=== PATIENT | female | born 1995 | race Caucasian/White ===

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

== ENCOUNTER 2017-01-04 04:42 | Inpatient (IN) | payer MEDICAID, OTHER ==
[~2017-01-04] VITALS: Ht 162.6 cm; Wt 96.5 kg
[~2017-01-04 04:42] MED LIST changes: +ARIP15TA3 PO; -ESCI10TA PO; -GABA-531 PO; -PRAZ2 PO; +SERT100T12 PO; +TRAZ-144 PO
[2017-01-04] MEDS ORDERED: HYD25 PO (05:00)
[2017-01-04] MEDS ORDERED: PRAZ1 PO (05:00)
[2017-01-04 05:43] LABS: BASOPHILS # (AUTO) 0.03 K/uL (0.00-0.20); BASOPHILS % (AUTO) 0.3 % (0.0-2.0); EOSINOPHILS # (AUTO) 0.38 K/uL (0.00-0.70); EOSINOPHILS % (AUTO) 4.14 % (1.0-6.0); HEMATOCRIT 40.1 % (36-46); HEMOGLOBIN 13.4 g/dL (12.0-16.0); LYMPHOCYTES # (AUTO) 2.1 K/uL (1.0-4.8); MEAN CORPUSCULAR HEMOGLOBIN 27.7 pg (26.0-34.0); MEAN CORPUSCULAR HGB CONC 33.4 G/dL (31.0-37.0); MEAN CORPUSCULAR VOLUME 83 fL (80-100); MONOCYTES # (AUTO) 0.6 K/uL (0.1-1.0); MONOCYTES % (AUTO) 6.9 % (2.0-9.0); NEUTROPHILS % (AUTO) 65.7 % (40.0-70.0); PLATELET COUNT (AUTO) 259 K/uL (150-450); RED BLOOD CELL COUNT(AUTO) 4.83 MIL/uL (4.00-5.20); RED CELL DISTRIBUTION WIDTH 13.9 % (11.5-14.5); WHITE BLOOD COUNT (AUTO) 9.2 K/uL (4.5-11.0)
[2017-01-04 05:46] LABS: ANION GAP 8 mmol/L (8-16); CALCIUM, TOTAL 9.3 mg/dL (8.8-10.5); CARBON DIOXIDE 30 mmol/L (22-29); CHLORIDE 103 mmol/L (98-107); CREATININE 0.62 mg/dL (0.60-1.30); GLOMERULAR FILTR. RATE CALC > 60 mL/min (>60); POTASSIUM 4.4 mmol/L (3.5-5.1); SODIUM SERUM 141 mmol/L (136-145); UREA NITROGEN, BLOOD 7 mg/dL (7-18)
[2017-01-04 05:51] LABS: ALANINE AMINOTRANSFERASE 44 U/L (12-78); ALBUMIN 3.8 g/dL (3.4-5.0); ASPARTATE AMINOTRANSFERASE 25 U/L (15-37); BILIRUBIN,TOTAL 0.2 mg/dL (0.1-1.0); TOTAL PROTEIN, SERUM 8.7 g/dL (6.4-8.2)
[2017-01-04] MEDS ORDERED: LORazepam 2 MG TABLET PO ONE (07:45)
[2017-01-04] MEDS ORDERED: ZOLPIDEM TARTRATE 10 MG TABLET PO PRN (08:00)
[2017-01-04] MEDS: OLANZapine 5 MG RAPDIS TABLET PO PRN ×2 (08:01→16:14)
[2017-01-04] MEDS: LORazepam 2 MG TABLET PO PRN (16:14)
[2017-01-04] MEDS: GABAPENTIN 300 MG CAPSULE PO SCH ×2 (16:22→21:31)
[2017-01-04] MEDS ORDERED: MAG HYDROX/AL HYDROX/SIMETH ES 30 ML SUSPENSION UDCUP PO PRN (17:45)
[2017-01-04] MEDS ORDERED: LOPERAMIDE HCL 2 MG CAPSULE PO PRN (17:45)
[2017-01-04] MEDS ORDERED: HydrOXYzine PAMOATE 50 MG CAPSULE PO PRN (17:45)
[2017-01-04] MEDS ORDERED: PROMETHAZINE HCL 25 MG TABLET PO PRN (17:45)
[2017-01-04] MEDS ORDERED: GuaiFENesin/D-METHORPHAN [SUGAR-FREE] 200-20MG/10 ML SYRUP UDCUP PO PRN (17:45)
[2017-01-04] MEDS ORDERED: MAGNESIUM HYDROXIDE SUSPENSION 30 ML UDCUP PO PRN (17:45)
[2017-01-04] MEDS ORDERED: ACETAMINOPHEN 325 MG TABLET PO PRN (17:45)
[2017-01-04] MEDS ORDERED: OLANZapine 5 MG TABLET PO SCH (21:00)
[2017-01-04] MEDS ORDERED: ARIPiprazole 10 MG TABLET PO SCH (21:00)
[2017-01-04] MEDS: PRAZOSIN HCL 2 MG CAPSULE PO SCH (21:31)
[2017-01-04] MEDS: TraZODone HCL 50 MG TABLET PO SCH (21:31)
[2017-01-04] MEDS: THIAMINE HCL 100 MG TABLET PO SCH (21:31)
[2017-01-04] MEDS: SERTRALINE HCL 100 MG TABLET PO SCH (21:31)
[2017-01-05 01:38] VITALS: BP 129/64
[2017-01-05] MEDS ORDERED: PNEUMOCOCCAL VACCINE POLYVALENT 0.5 ML VIAL [PPSV23] IM ONE (06:30)
[2017-01-05 08:07] VITALS: BP 133/70
[2017-01-05] MEDS: FOLIC ACID 1 MG TABLET PO SCH (10:02)
[2017-01-05] MEDS: MULTIVITAMINS WITH MINERALS, THERAPEUTIC TABLET PO SCH (10:02)
[2017-01-05] MEDS: GABAPENTIN 300 MG CAPSULE PO SCH ×3 (10:02→16:38)
[2017-01-05] MEDS: THIAMINE HCL 100 MG TABLET PO SCH ×2 (10:03→16:38)
[2017-01-05] MEDS ORDERED: IBUPROFEN 400 MG TABLET PO PRN (10:30)
[2017-01-05] MEDS ORDERED: ALBUTEROL SULFATE HFA 90 MCG/PUFF 8 GM INHALER IH PRN (10:30)
[2017-01-05] MEDS: LORazepam 2 MG TABLET PO PRN (12:49)
[2017-01-05] MEDS: OLANZapine 5 MG RAPDIS TABLET PO PRN (12:49)
[2017-01-05 14:20] LABS: GLUCOSE, URINE (UA) NEGATIVE (NEGATIVE); KETONES,URINE NEGATIVE (NEGATIVE); LEUKOCYTE ESTERASE ,URINE SMALL (NEGATIVE); OCCULT BLOOD,URINE NEGATIVE (NEGATIVE); PH,URINE 6.5 (5.0-8.0); PROTEIN,URINE NEGATIVE (NEGATIVE)
[2017-01-05 14:26] LABS: APPEARANCE,URINE SLIGHTLY CLOUDY (CLEAR)
[2017-01-05 14:27] LABS: RBC,URINE None Seen /HPF (0-2); SQUAMOUS EPITHELIAL CELL,UR Moderate /LPF (None Seen)
[2017-01-05 16:41] VITALS: BP 129/79
[2017-01-05] MEDS: TRIHEXYPHENIDYL HCL 2 MG TABLET PO SCH (17:29)
[2017-01-05] MEDS: TraZODone HCL 50 MG TABLET PO SCH (21:00)
[2017-01-05] MEDS ORDERED: HALOPERIDOL 10 MG TABLET PO SCH (21:00)
[2017-01-05 21:09] VITALS: BP 139/62
[2017-01-05] MEDS: PRAZOSIN HCL 2 MG CAPSULE PO SCH (22:08)
[2017-01-05] MEDS: SERTRALINE HCL 100 MG TABLET PO SCH (22:09)
[2017-01-06 08:00] VITALS: BP 123/74
[2017-01-06] MEDS: TRIHEXYPHENIDYL HCL 2 MG TABLET PO SCH ×3 (09:19→16:31)
[2017-01-06] MEDS: FOLIC ACID 1 MG TABLET PO SCH (09:20)
[2017-01-06] MEDS: THIAMINE HCL 100 MG TABLET PO SCH ×2 (09:20→16:31)
[2017-01-06] MEDS: GABAPENTIN 300 MG CAPSULE PO SCH ×3 (09:20→16:31)
[2017-01-06] MEDS: MULTIVITAMINS WITH MINERALS, THERAPEUTIC TABLET PO SCH (09:20)
[2017-01-06 16:30] VITALS: BP 114/66
[2017-01-06] MEDS: SERTRALINE HCL 100 MG TABLET PO SCH (20:30)
[2017-01-06] MEDS: PRAZOSIN HCL 1 MG CAPSULE PO SCH (20:30)
[2017-01-06] MEDS ORDERED: HALOPERIDOL 5 MG TABLET PO SCH (21:00)
[2017-01-07 08:00] VITALS: BP 125/64
[2017-01-07] MEDS: TRIHEXYPHENIDYL HCL 2 MG TABLET PO SCH ×3 (08:45→16:17)
[2017-01-07] MEDS: HALOPERIDOL 5 MG TABLET PO PRN (08:46)
[2017-01-07] MEDS: THIAMINE HCL 100 MG TABLET PO SCH ×2 (08:46→16:17)
[2017-01-07] MEDS: GABAPENTIN 300 MG CAPSULE PO SCH ×3 (08:46→16:17)
[2017-01-07] MEDS: FOLIC ACID 1 MG TABLET PO SCH (08:46)
[2017-01-07] MEDS: MULTIVITAMINS WITH MINERALS, THERAPEUTIC TABLET PO SCH (08:46)
[2017-01-07] MEDS: LORazepam 2 MG TABLET PO PRN (19:02)
[2017-01-07 19:36] VITALS: BP 119/75
[2017-01-07 20:38] VITALS: BP 118/71
[2017-01-07] MEDS: SERTRALINE HCL 100 MG TABLET PO SCH (20:40)
[2017-01-07] MEDS: PRAZOSIN HCL 1 MG CAPSULE PO SCH (20:40)
[2017-01-07] MEDS ORDERED: HALOPERIDOL 10 MG TABLET PO SCH (21:00)
[2017-01-08] MEDS: THIAMINE HCL 100 MG TABLET PO SCH ×2 (09:10→16:14)
[2017-01-08] MEDS: GABAPENTIN 300 MG CAPSULE PO SCH ×3 (09:11→16:14)
[2017-01-08] MEDS: MULTIVITAMINS WITH MINERALS, THERAPEUTIC TABLET PO SCH (09:11)
[2017-01-08] MEDS: FOLIC ACID 1 MG TABLET PO SCH (09:11)
[2017-01-08] MEDS: TRIHEXYPHENIDYL HCL 2 MG TABLET PO SCH ×3 (09:11→16:14)
[2017-01-08 09:47] VITALS: BP 126/67
[2017-01-08] MEDS: LORazepam 2 MG TABLET PO PRN (11:13)
[2017-01-08] MEDS: HALOPERIDOL 5 MG TABLET PO PRN (11:13)
[2017-01-08] MEDS: HALOPERIDOL 5 MG TABLET PO SCH ×2 (16:14→20:26)
[2017-01-08 17:00] VITALS: BP 113/64
[2017-01-08] MEDS: SERTRALINE HCL 100 MG TABLET PO SCH (20:27)
[2017-01-08] MEDS: PRAZOSIN HCL 1 MG CAPSULE PO SCH (21:00)
[2017-01-09 08:04] VITALS: BP 106/55
[2017-01-09] MEDS: GABAPENTIN 300 MG CAPSULE PO SCH ×2 (08:33→12:07)
[2017-01-09] MEDS: TRIHEXYPHENIDYL HCL 2 MG TABLET PO SCH ×2 (08:33→12:07)
[2017-01-09] MEDS: MULTIVITAMINS WITH MINERALS, THERAPEUTIC TABLET PO SCH (08:33)
[2017-01-09] MEDS: FOLIC ACID 1 MG TABLET PO SCH (08:33)
[2017-01-09] MEDS: THIAMINE HCL 100 MG TABLET PO SCH (08:33)
[2017-01-09] MEDS: HALOPERIDOL 5 MG TABLET PO SCH ×2 (08:33→12:07)
[2017-01-09] MEDS ORDERED: HALO5 PO (13:06)
[2017-01-09] MEDS ORDERED: GABA-531 PO (13:06)
[2017-01-09] MEDS ORDERED: TRIH2TAB3 PO (13:06)
== END 2017-01-09 14:05 | disposition home or self-care (01) | DRG 750 ==
LOC: EEVIPCON 04:43 → EMS 04:43 → 3EI 23:27
PROVIDERS: ADMIT Psychiatry & Neurology Psychiatry; ATTEND Psychiatry & Neurology Psychiatry
DX: F25.1 Schizoaffective disorder, depressive type (principal); R45.851 Suicidal ideations; Z91.19 Patient's noncompliance with other medical treatment and regimen; E66.9 Obesity, unspecified; I10 Essential (primary) hypertension; F43.10 Post-traumatic stress disorder, unspecified; J45.909 Unspecified asthma, uncomplicated; Z28.21 Immunization not carried out because of patient refusal; S50.812A Abrasion of left forearm, initial encounter; X78.9XXA Intentional self-harm by unspecified sharp object, initial encounter; Z86.59 Personal history of other mental and behavioral disorders; Z79.899 Other long term (current) drug therapy; Z68.32 Body mass index [BMI] 32.0-32.9, adult; Y93.89 Activity, other specified; Y92.89 Other specified places as the place of occurrence of the external cause; Y99.8 Other external cause status
CPT/HCPCS: 80173; 87081; 99285; G0480; J3535

== ENCOUNTER 2017-01-14 21:38 | Inpatient (IN) | payer MEDICAID ==
[~2017-01-14] VITALS: Ht 162.6 cm; Wt 96.6 kg
[~2017-01-14 21:38] MED LIST changes: -ARIP15TA3 PO; +GABA-531 PO; +HALO5 PO; +PRAZ1 PO; -TRAZ-144 PO; +TRIH2TAB3 PO
[2017-01-14 22:02] LABS: BASOPHILS % (AUTO) 0.9 % (0.0-2.0); EOSINOPHILS # (AUTO) 0.32 K/uL (0.00-0.70); EOSINOPHILS % (AUTO) 2.88 % (1.0-6.0); HEMATOCRIT 38.7 % (36-46); HEMOGLOBIN 12.9 g/dL (12.0-16.0); LYMPHOCYTES # (AUTO) 2.8 K/uL (1.0-4.8); LYMPHOCYTES % (AUTO) 24.5 % (22.0-44.0); MEAN CORPUSCULAR HEMOGLOBIN 27.6 pg (26.0-34.0); MEAN CORPUSCULAR HGB CONC 33.4 G/dL (31.0-37.0); MEAN CORPUSCULAR VOLUME 83 fL (80-100); MONOCYTES % (AUTO) 8.9 % (2.0-9.0); NEUTROPHILS % (AUTO) 62.8 % (40.0-70.0); PLATELET COUNT (AUTO) 261 K/uL (150-450); RED BLOOD CELL COUNT(AUTO) 4.68 MIL/uL (4.00-5.20); RED CELL DISTRIBUTION WIDTH 13.7 % (11.5-14.5); WHITE BLOOD COUNT (AUTO) 11.2 K/uL (4.5-11.0)
[2017-01-14 22:12] LABS: ANION GAP 7 mmol/L (8-16); CALCIUM, TOTAL 9.1 mg/dL (8.8-10.5); CARBON DIOXIDE 30 mmol/L (22-29); CHLORIDE 102 mmol/L (98-107); CREATININE 0.67 mg/dL (0.60-1.30); GLOMERULAR FILTR. RATE CALC > 60 mL/min (>60); SODIUM SERUM 139 mmol/L (136-145); UREA NITROGEN, BLOOD 12 mg/dL (7-18)
[2017-01-14 22:19] LABS: ALANINE AMINOTRANSFERASE 34 U/L (12-78); ALBUMIN 3.7 g/dL (3.4-5.0); ASPARTATE AMINOTRANSFERASE 18 U/L (15-37); BILIRUBIN,TOTAL 0.2 mg/dL (0.1-1.0); TOTAL PROTEIN, SERUM 8.5 g/dL (6.4-8.2)
[2017-01-14] MEDS ORDERED: DiphenhydrAMINE HCL 50 MG/ML VIAL IM ONE (23:00)
[2017-01-14] MEDS ORDERED: LORazepam 2 MG/ML VIAL IM ONE (23:00)
[2017-01-14] MEDS ORDERED: OLANZapine 5 MG TABLET PO ONE (23:45)
[2017-01-15] MEDS ORDERED: OLANZapine 5 MG RAPDIS TABLET PO PRN (00:15)
[2017-01-15 06:04] VITALS: BP 124/76
[2017-01-15 08:40] VITALS: BP 101/56
[2017-01-15] MEDS ORDERED: GuaiFENesin/D-METHORPHAN [SUGAR-FREE] 200-20MG/10 ML SYRUP UDCUP PO PRN (13:30)
[2017-01-15] MEDS ORDERED: MAG HYDROX/AL HYDROX/SIMETH ES 30 ML SUSPENSION UDCUP PO PRN (13:30)
[2017-01-15] MEDS ORDERED: ACETAMINOPHEN 325 MG TABLET PO PRN ×2 (13:30→23:00)
[2017-01-15] MEDS ORDERED: PROMETHAZINE HCL 25 MG TABLET PO PRN (13:30)
[2017-01-15] MEDS ORDERED: HydrOXYzine PAMOATE 50 MG CAPSULE PO PRN (13:30)
[2017-01-15] MEDS ORDERED: LOPERAMIDE HCL 2 MG CAPSULE PO PRN (13:30)
[2017-01-15] MEDS ORDERED: QUEtiapine FUMARATE 100 MG TABLET PO PRN ×2 (15:15)
[2017-01-15 16:00] VITALS: BP 150/72
[2017-01-15] MEDS: THIAMINE HCL 100 MG TABLET PO SCH (16:21)
[2017-01-15] MEDS: QUEtiapine FUMARATE 25 MG TABLET PO SCH (16:21)
[2017-01-15] MEDS ORDERED: GABAPENTIN 300 MG CAPSULE PO SCH (17:00)
[2017-01-15 20:20] VITALS: BP 130/88
[2017-01-15] MEDS: PRAZOSIN HCL 1 MG CAPSULE PO SCH (20:22)
[2017-01-15] MEDS: QUEtiapine FUMARATE 200 MG TABLET PO SCH (20:30)
[2017-01-15] MEDS ORDERED: OLANZapine 5 MG RAPDIS TABLET PO SCH (21:00)
[2017-01-15] MEDS ORDERED: ALBUTEROL SULFATE HFA 90 MCG/PUFF 8 GM INHALER IH PRN (23:00)
[2017-01-15] MEDS ORDERED: IBUPROFEN 400 MG TABLET PO PRN (23:00)
[2017-01-16 08:40] VITALS: BP 121/62
[2017-01-16] MEDS: LORazepam 2 MG TABLET PO PRN ×2 (08:40→23:08)
[2017-01-16] MEDS: QUEtiapine FUMARATE 25 MG TABLET PO SCH ×3 (08:40→16:43)
[2017-01-16] MEDS: FOLIC ACID 1 MG TABLET PO SCH (08:40)
[2017-01-16] MEDS: MULTIVITAMINS WITH MINERALS, THERAPEUTIC TABLET PO SCH (08:40)
[2017-01-16] MEDS: THIAMINE HCL 100 MG TABLET PO SCH ×2 (08:40→16:43)
[2017-01-16] MEDS: SERTRALINE HCL 100 MG TABLET PO SCH (08:40)
[2017-01-16 16:03] VITALS: BP 99/61
[2017-01-16] MEDS: QUEtiapine FUMARATE 200 MG TABLET PO SCH (20:28)
[2017-01-16] MEDS: PRAZOSIN HCL 1 MG CAPSULE PO SCH (20:28)
[2017-01-16] MEDS: ZOLPIDEM TARTRATE 10 MG TABLET PO PRN (22:19)
[2017-01-17 06:19] VITALS: BP 122/79
[2017-01-17] MEDS: MULTIVITAMINS WITH MINERALS, THERAPEUTIC TABLET PO SCH (09:49)
[2017-01-17] MEDS: SERTRALINE HCL 100 MG TABLET PO SCH (09:49)
[2017-01-17] MEDS: QUEtiapine FUMARATE 25 MG TABLET PO SCH ×3 (09:49→16:34)
[2017-01-17] MEDS: BACITRACIN 28.4 GM OINTMENT TP SCH ×3 (09:49→16:34)
[2017-01-17] MEDS: FOLIC ACID 1 MG TABLET PO SCH (09:49)
[2017-01-17] MEDS: THIAMINE HCL 100 MG TABLET PO SCH ×2 (09:49→16:34)
[2017-01-17 10:01] VITALS: BP 118/64
[2017-01-17] MEDS: MAGNESIUM HYDROXIDE SUSPENSION 30 ML UDCUP PO PRN (12:32)
[2017-01-17 16:11] VITALS: BP 120/71
[2017-01-17] MEDS: LORazepam 2 MG TABLET PO PRN (16:36)
[2017-01-17] MEDS: PRAZOSIN HCL 1 MG CAPSULE PO SCH (20:09)
[2017-01-17] MEDS: ZOLPIDEM TARTRATE 10 MG TABLET PO PRN (20:09)
[2017-01-17] MEDS: QUEtiapine FUMARATE 200 MG TABLET PO SCH (20:10)
[2017-01-18 06:58] VITALS: BP 120/80
[2017-01-18] MEDS: QUEtiapine FUMARATE 25 MG TABLET PO SCH ×3 (08:11→16:29)
[2017-01-18] MEDS: SERTRALINE HCL 100 MG TABLET PO SCH (08:11)
[2017-01-18] MEDS: FOLIC ACID 1 MG TABLET PO SCH (08:11)
[2017-01-18] MEDS: LORazepam 2 MG TABLET PO PRN ×2 (08:11→14:41)
[2017-01-18] MEDS: BACITRACIN 28.4 GM OINTMENT TP SCH ×3 (08:11→16:31)
[2017-01-18] MEDS: THIAMINE HCL 100 MG TABLET PO SCH ×2 (08:11→16:29)
[2017-01-18] MEDS: MULTIVITAMINS WITH MINERALS, THERAPEUTIC TABLET PO SCH (08:11)
[2017-01-18 08:13] VITALS: BP 111/66
[2017-01-18 16:01] VITALS: BP 126/66
[2017-01-18] MEDS ORDERED: BACITRACIN 28.4 GM OINTMENT TP SCH (17:00)
[2017-01-18] MEDS: MAGNESIUM HYDROXIDE SUSPENSION 30 ML UDCUP PO PRN (18:47)
[2017-01-18] MEDS: ZOLPIDEM TARTRATE 10 MG TABLET PO PRN (19:48)
[2017-01-18] MEDS: PRAZOSIN HCL 1 MG CAPSULE PO SCH (20:05)
[2017-01-18] MEDS ORDERED: QUEtiapine FUMARATE 200 MG TABLET PO SCH (21:00)
[2017-01-19 06:43] VITALS: BP 106/70
[2017-01-19 08:01] VITALS: BP 121/62
[2017-01-19] MEDS: BACITRACIN 28.4 GM OINTMENT TP SCH ×3 (08:10→16:03)
[2017-01-19] MEDS: THIAMINE HCL 100 MG TABLET PO SCH ×2 (08:10→16:02)
[2017-01-19] MEDS: MULTIVITAMINS WITH MINERALS, THERAPEUTIC TABLET PO SCH (08:10)
[2017-01-19] MEDS: FOLIC ACID 1 MG TABLET PO SCH (08:10)
[2017-01-19] MEDS: QUEtiapine FUMARATE 25 MG TABLET PO SCH ×3 (08:10→16:02)
[2017-01-19] MEDS: LORazepam 2 MG TABLET PO PRN (08:10)
[2017-01-19 16:04] VITALS: BP 113/66
[2017-01-19 19:51] VITALS: BP 130/82
[2017-01-19] MEDS: ZOLPIDEM TARTRATE 10 MG TABLET PO PRN (20:03)
[2017-01-19] MEDS: PRAZOSIN HCL 1 MG CAPSULE PO SCH (20:03)
[2017-01-19] MEDS ORDERED: QUEtiapine FUMARATE 300 MG TABLET PO SCH (21:00)
[2017-01-20 05:20] VITALS: BP 119/74
[2017-01-20] MEDS: MULTIVITAMINS WITH MINERALS, THERAPEUTIC TABLET PO SCH (08:06)
[2017-01-20] MEDS: FOLIC ACID 1 MG TABLET PO SCH (08:06)
[2017-01-20] MEDS: QUEtiapine FUMARATE 25 MG TABLET PO SCH ×3 (08:06→16:00)
[2017-01-20] MEDS: BACITRACIN 28.4 GM OINTMENT TP SCH ×3 (08:06→16:02)
[2017-01-20] MEDS: THIAMINE HCL 100 MG TABLET PO SCH ×2 (08:06→16:00)
[2017-01-20 08:35] VITALS: BP 105/57
[2017-01-20] MEDS: LORazepam 2 MG TABLET PO PRN (15:35)
[2017-01-20 16:35] VITALS: BP 123/67
[2017-01-20] MEDS ORDERED: PRAZOSIN HCL 2 MG CAPSULE PO SCH (21:00)
[2017-01-20] MEDS ORDERED: QUEtiapine FUMARATE 200 MG TABLET PO SCH (21:00)
[2017-01-20] MEDS ORDERED: QUEtiapine FUMARATE 300 MG TABLET PO SCH ×2 (21:00)
[2017-01-20] MEDS: ZOLPIDEM TARTRATE 10 MG TABLET PO PRN (21:01)
[2017-01-20 22:00] VITALS: BP 102/58
[2017-01-21 00:04] VITALS: BP 113/66
[2017-01-21] MEDS: THIAMINE HCL 100 MG TABLET PO SCH ×2 (08:01→16:12)
[2017-01-21] MEDS: QUEtiapine FUMARATE 25 MG TABLET PO SCH ×3 (08:01→16:12)
[2017-01-21] MEDS: FOLIC ACID 1 MG TABLET PO SCH (08:01)
[2017-01-21] MEDS: MULTIVITAMINS WITH MINERALS, THERAPEUTIC TABLET PO SCH (08:01)
[2017-01-21 08:10] VITALS: BP 105/56
[2017-01-21] MEDS: BACITRACIN 28.4 GM OINTMENT TP SCH ×3 (08:19→16:12)
[2017-01-21] MEDS: LORazepam 2 MG TABLET PO PRN (12:34)
[2017-01-21] MEDS ORDERED: QUET25TA PO (15:16)
[2017-01-21] MEDS ORDERED: PRAZ2 PO (15:16)
[2017-01-21] MEDS ORDERED: QUET300T2 PO (15:16)
[2017-01-21 16:03] VITALS: BP 124/62
[2017-01-21 18:13] LABS: DESMETHYLSERTRALINE LEVEL 129 ng/ml; SERTRALINE 37 ng/ml (30-200)
== END 2017-01-21 16:25 | disposition home or self-care (01) | DRG 750 ==
LOC: EMS 21:39 → B3A 01-15 00:15
PROVIDERS: ADMIT Psychiatry & Neurology Psychiatry; ATTEND Psychiatry & Neurology Psychiatry
DX: F25.0 Schizoaffective disorder, bipolar type (principal); R45.851 Suicidal ideations; N39.0 Urinary tract infection, site not specified; F50.9 Eating disorder, unspecified; F32.9 Major depressive disorder, single episode, unspecified; J45.909 Unspecified asthma, uncomplicated; R45.87 Impulsiveness; D72.829 Elevated white blood cell count, unspecified; F43.10 Post-traumatic stress disorder, unspecified; Z91.14 Patient's other noncompliance with medication regimen
CPT/HCPCS: 96372; 99285; G0431; G0480; J1200; J2060

== ENCOUNTER 2017-01-23 21:49 | Inpatient (IN) | payer MEDICAID ==
[~2017-01-23] VITALS: Ht 157.5 cm; Wt 96.2 kg
[~2017-01-23 21:49] MED LIST changes: -GABA-531 PO; -HALO5 PO; -PRAZ1 PO; +PRAZ2 PO; +QUET25TA PO; +QUET300T2 PO; -SERT100T12 PO; -TRIH2TAB3 PO
[2017-01-23] MEDS ORDERED: ZOLPIDEM TARTRATE 5 MG TABLET PO PRN (22:45)
[2017-01-23] MEDS ORDERED: ChlorproMAZINE HCL 100 MG TABLET PO PRN (22:45)
[2017-01-23 23:07] VITALS: BP 103/62
[2017-01-24] MEDS ORDERED: PNEUMOCOCCAL VACCINE POLYVALENT 0.5 ML VIAL [PPSV23] IM ONE (00:45)
[2017-01-24 01:26] VITALS: BP 113/56
[2017-01-24 08:12] LABS: BASOPHILS # (AUTO) 0.03 K/uL (0.00-0.20); BASOPHILS % (AUTO) 0.4 % (0.0-2.0); EOSINOPHILS # (AUTO) 0.23 K/uL (0.00-0.70); EOSINOPHILS % (AUTO) 3.55 % (1.0-6.0); HEMATOCRIT 36.6 % (36-46); HEMOGLOBIN 12.2 g/dL (12.0-16.0); LYMPHOCYTES # (AUTO) 1.7 K/uL (1.0-4.8); MEAN CORPUSCULAR HEMOGLOBIN 27.6 pg (26.0-34.0); MEAN CORPUSCULAR HGB CONC 33.2 G/dL (31.0-37.0); MEAN CORPUSCULAR VOLUME 83 fL (80-100); MONOCYTES # (AUTO) 0.6 K/uL (0.1-1.0); MONOCYTES % (AUTO) 10.1 % (2.0-9.0); NEUTROPHILS # (AUTO) 3.8 K/uL (1.8-7.7); PLATELET COUNT (AUTO) 203 K/uL (150-450); RED CELL DISTRIBUTION WIDTH 14.2 % (11.5-14.5); WHITE BLOOD COUNT (AUTO) 6.4 K/uL (4.5-11.0)
[2017-01-24 08:28] VITALS: BP 103/62
[2017-01-24] MEDS: QUEtiapine FUMARATE 25 MG TABLET PO SCH ×3 (08:43→16:21)
[2017-01-24 08:57] LABS: HEMOGLOBIN A1C 5.3 % (4.5-6.2)
[2017-01-24 09:03] LABS: ALANINE AMINOTRANSFERASE 39 U/L (12-78); ALBUMIN 3.2 g/dL (3.4-5.0); ANION GAP 5 mmol/L (8-16); ASPARTATE AMINOTRANSFERASE 19 U/L (15-37); BILIRUBIN,TOTAL 0.2 mg/dL (0.1-1.0); CALCIUM, TOTAL 8.6 mg/dL (8.8-10.5); CARBON DIOXIDE 30 mmol/L (22-29); CHLORIDE 105 mmol/L (98-107); CHOL/HDL RATIO 4.4 (3.9-5.7); CREATININE 0.58 mg/dL (0.60-1.30); GLOMERULAR FILTR. RATE CALC > 60 mL/min (>60); SODIUM SERUM 140 mmol/L (136-145); THYROID STIMULATING HORMONE 1.47 uIU/mL (0.36-3.74); TOTAL PROTEIN, SERUM 6.9 g/dL (6.4-8.2); UREA NITROGEN, BLOOD 8 mg/dL (7-18)
[2017-01-24] MEDS ORDERED: ACETAMINOPHEN 325 MG TABLET PO PRN (14:45)
[2017-01-24] MEDS ORDERED: IBUPROFEN 400 MG TABLET PO PRN (14:45)
[2017-01-24 16:17] VITALS: BP_SYST 119; BP_SYST 133; BP_DIAS 74
[2017-01-24] MEDS ORDERED: QUEtiapine FUMARATE 300 MG TABLET PO SCH (21:00)
[2017-01-25 06:49] VITALS: BP 103/71
[2017-01-25] MEDS: QUEtiapine FUMARATE 25 MG TABLET PO SCH ×3 (08:07→16:05)
[2017-01-25] MEDS: LORazepam 2 MG TABLET PO PRN ×2 (08:07→16:08)
[2017-01-25] MEDS: BACITRACIN 28.4 GM OINTMENT TP SCH ×2 (08:08→17:01)
[2017-01-25 08:55] VITALS: BP 109/59
[2017-01-25] MEDS ORDERED: HydrOXYzine PAMOATE 50 MG CAPSULE PO PRN (12:00)
[2017-01-25] MEDS ORDERED: MAG HYDROX/AL HYDROX/SIMETH ES 30 ML SUSPENSION UDCUP PO PRN (12:00)
[2017-01-25] MEDS ORDERED: QUEtiapine FUMARATE 100 MG TABLET PO PRN (12:00)
[2017-01-25] MEDS ORDERED: MAGNESIUM HYDROXIDE SUSPENSION 30 ML UDCUP PO PRN (12:00)
[2017-01-25] MEDS ORDERED: GuaiFENesin/D-METHORPHAN [SUGAR-FREE] 200-20MG/10 ML SYRUP UDCUP PO PRN (12:00)
[2017-01-25] MEDS ORDERED: LOPERAMIDE HCL 2 MG CAPSULE PO PRN (12:00)
[2017-01-25] MEDS ORDERED: QUET200T PO (12:01)
[2017-01-25 16:00] VITALS: BP 131/71
[2017-01-25 16:05] VITALS: BP 131/71
[2017-01-25] MEDS: THIAMINE HCL 100 MG TABLET PO SCH (16:05)
[2017-01-25] MEDS: QUEtiapine FUMARATE 200 MG TABLET PO SCH (20:07)
[2017-01-25] MEDS: ZOLPIDEM TARTRATE 10 MG TABLET PO PRN (20:58)
[2017-01-26 06:41] VITALS: BP 110/60
[2017-01-26 08:08] VITALS: BP 107/62
[2017-01-26] MEDS: LORazepam 2 MG TABLET PO PRN ×2 (08:37→15:44)
[2017-01-26] MEDS: BACITRACIN 28.4 GM OINTMENT TP SCH ×2 (08:38→16:50)
[2017-01-26] MEDS: FOLIC ACID 1 MG TABLET PO SCH (08:38)
[2017-01-26] MEDS: QUEtiapine FUMARATE 25 MG TABLET PO SCH ×3 (08:38→16:50)
[2017-01-26] MEDS: MULTIVITAMINS WITH MINERALS, THERAPEUTIC TABLET PO SCH (08:38)
[2017-01-26] MEDS: THIAMINE HCL 100 MG TABLET PO SCH ×2 (08:38→16:50)
[2017-01-26] MEDS: QUEtiapine FUMARATE 25 MG TABLET PO PRN (10:35)
[2017-01-26 16:13] VITALS: BP 112/73
[2017-01-26] MEDS: HydrOXYzine PAMOATE 50 MG CAPSULE PO SCH (16:50)
[2017-01-26] MEDS: ZOLPIDEM TARTRATE 10 MG TABLET PO PRN (20:03)
[2017-01-26] MEDS: QUEtiapine FUMARATE 200 MG TABLET PO SCH (20:03)
[2017-01-27 02:25] VITALS: BP 98/60
[2017-01-27 06:05] VITALS: BP 109/63
[2017-01-27] MEDS: LORazepam 2 MG TABLET PO PRN (06:06)
[2017-01-27 08:15] VITALS: BP 100/55
[2017-01-27] MEDS: THIAMINE HCL 100 MG TABLET PO SCH ×2 (08:31→16:30)
[2017-01-27] MEDS: FOLIC ACID 1 MG TABLET PO SCH (08:31)
[2017-01-27] MEDS: BACITRACIN 28.4 GM OINTMENT TP SCH ×2 (08:32→16:31)
[2017-01-27] MEDS: QUEtiapine FUMARATE 25 MG TABLET PO SCH ×2 (08:32→12:21)
[2017-01-27] MEDS: HydrOXYzine PAMOATE 50 MG CAPSULE PO SCH ×3 (08:32→16:30)
[2017-01-27] MEDS: MULTIVITAMINS WITH MINERALS, THERAPEUTIC TABLET PO SCH (08:32)
[2017-01-27 16:00] VITALS: BP 115/71
[2017-01-27] MEDS: QUEtiapine FUMARATE 200 MG TABLET PO SCH (21:00)
[2017-01-27] MEDS ORDERED: PRAZOSIN HCL 1 MG CAPSULE PO SCH (21:00)
[2017-01-27] MEDS: ZOLPIDEM TARTRATE 10 MG TABLET PO PRN (21:25)
[2017-01-28] MEDS: HydrOXYzine PAMOATE 50 MG CAPSULE PO SCH (06:58)
[2017-01-28 07:10] VITALS: BP 100/68
[2017-01-28 07:11] VITALS: BP 110/74
[2017-01-28] MEDS: BACITRACIN 28.4 GM OINTMENT TP SCH ×2 (08:27→16:13)
[2017-01-28] MEDS: THIAMINE HCL 100 MG TABLET PO SCH ×2 (08:27→16:11)
[2017-01-28] MEDS: MULTIVITAMINS WITH MINERALS, THERAPEUTIC TABLET PO SCH (08:27)
[2017-01-28] MEDS: FOLIC ACID 1 MG TABLET PO SCH (08:27)
[2017-01-28 08:29] VITALS: BP 107/65
[2017-01-28] MEDS: LORazepam 2 MG TABLET PO PRN (15:57)
[2017-01-28 16:30] VITALS: BP 133/74
[2017-01-28] MEDS: PROMETHAZINE HCL 25 MG TABLET PO PRN (17:32)
[2017-01-28] MEDS: QUEtiapine FUMARATE 200 MG TABLET PO SCH (20:32)
[2017-01-28] MEDS: ZOLPIDEM TARTRATE 10 MG TABLET PO PRN (20:32)
[2017-01-28] MEDS ORDERED: PRAZOSIN HCL 2 MG CAPSULE PO SCH (21:00)
[2017-01-29] MEDS: HydrOXYzine PAMOATE 50 MG CAPSULE PO SCH (06:19)
[2017-01-29 06:53] VITALS: BP 125/72
[2017-01-29 08:24] VITALS: BP 100/58
[2017-01-29] MEDS: FOLIC ACID 1 MG TABLET PO SCH (08:43)
[2017-01-29] MEDS: MULTIVITAMINS WITH MINERALS, THERAPEUTIC TABLET PO SCH (08:43)
[2017-01-29] MEDS: BACITRACIN 28.4 GM OINTMENT TP SCH ×2 (08:43→16:25)
[2017-01-29] MEDS: THIAMINE HCL 100 MG TABLET PO SCH ×2 (08:43→16:04)
[2017-01-29] MEDS: LORazepam 2 MG TABLET PO PRN ×2 (16:04→23:28)
[2017-01-29 16:09] VITALS: BP 111/73
[2017-01-29] MEDS: PRAZOSIN HCL 1 MG CAPSULE PO SCH (20:07)
[2017-01-29] MEDS: ROPINIRole HCL 1 MG TABLET PO SCH (20:08)
[2017-01-29 20:09] VITALS: BP 118/75
[2017-01-29] MEDS: QUEtiapine FUMARATE 200 MG TABLET PO SCH (20:09)
[2017-01-29] MEDS: ZOLPIDEM TARTRATE 10 MG TABLET PO PRN (21:06)
[2017-01-29] MEDS: QUEtiapine FUMARATE 25 MG TABLET PO PRN (23:29)
[2017-01-30 00:05] VITALS: BP 115/75
[2017-01-30] MEDS: HydrOXYzine PAMOATE 50 MG CAPSULE PO SCH (06:18)
[2017-01-30 08:09] VITALS: BP 100/50
[2017-01-30 08:37] LABS: APPEARANCE,URINE TURBID (CLEAR); GLUCOSE, URINE (UA) NEGATIVE (NEGATIVE); KETONES,URINE NEGATIVE (NEGATIVE); LEUKOCYTE ESTERASE ,URINE NEGATIVE (NEGATIVE); OCCULT BLOOD,URINE NEGATIVE (NEGATIVE); PH,URINE 8.5 (5.0-8.0); PROTEIN,URINE POS 1+ (NEGATIVE)
[2017-01-30 08:38] LABS: ADD UA MICROSCOPIC NO
[2017-01-30] MEDS: FOLIC ACID 1 MG TABLET PO SCH (09:03)
[2017-01-30] MEDS: BACITRACIN 28.4 GM OINTMENT TP SCH ×2 (09:03→16:36)
[2017-01-30] MEDS: THIAMINE HCL 100 MG TABLET PO SCH ×2 (09:03→16:00)
[2017-01-30] MEDS: LORazepam 2 MG TABLET PO PRN ×3 (09:04→23:37)
[2017-01-30] MEDS: MULTIVITAMINS WITH MINERALS, THERAPEUTIC TABLET PO SCH (09:04)
[2017-01-30 16:06] VITALS: BP 116/69
[2017-01-30] MEDS: QUEtiapine FUMARATE 25 MG TABLET PO PRN ×2 (17:37→23:37)
[2017-01-30] MEDS: ROPINIRole HCL 1 MG TABLET PO SCH (20:22)
[2017-01-30] MEDS: ZOLPIDEM TARTRATE 10 MG TABLET PO PRN (20:22)
[2017-01-30] MEDS: QUEtiapine FUMARATE 200 MG TABLET PO SCH (20:22)
[2017-01-30] MEDS: PRAZOSIN HCL 1 MG CAPSULE PO SCH (20:22)
[2017-01-31 00:26] VITALS: BP 150/77
[2017-01-31 00:27] VITALS: BP 99/60
[2017-01-31] MEDS: PROMETHAZINE HCL 25 MG TABLET PO PRN (01:12)
[2017-01-31 01:15] VITALS: BP 110/73
[2017-01-31] MEDS: HydrOXYzine PAMOATE 50 MG CAPSULE PO SCH (06:31)
[2017-01-31] MEDS: FOLIC ACID 1 MG TABLET PO SCH (08:03)
[2017-01-31] MEDS: THIAMINE HCL 100 MG TABLET PO SCH ×2 (08:03→16:09)
[2017-01-31] MEDS: MULTIVITAMINS WITH MINERALS, THERAPEUTIC TABLET PO SCH (08:03)
[2017-01-31] MEDS: BACITRACIN 28.4 GM OINTMENT TP SCH ×2 (08:03→16:09)
[2017-01-31 09:19] VITALS: BP 128/63
[2017-01-31] MEDS: LORazepam 2 MG TABLET PO PRN (15:51)
[2017-01-31 16:26] VITALS: BP 112/73
[2017-01-31 20:20] VITALS: BP 139/87
[2017-01-31] MEDS: QUEtiapine FUMARATE 200 MG TABLET PO SCH (20:22)
[2017-01-31] MEDS: PRAZOSIN HCL 1 MG CAPSULE PO SCH (20:22)
[2017-01-31] MEDS: ROPINIRole HCL 1 MG TABLET PO SCH (20:22)
[2017-01-31] MEDS: ZOLPIDEM TARTRATE 10 MG TABLET PO PRN (21:00)
[2017-02-01 05:00] VITALS: BP 125/82
[2017-02-01] MEDS: HydrOXYzine PAMOATE 50 MG CAPSULE PO SCH (06:13)
[2017-02-01 08:09] VITALS: BP 105/63
[2017-02-01] MEDS: THIAMINE HCL 100 MG TABLET PO SCH ×2 (08:47→16:21)
[2017-02-01] MEDS: MULTIVITAMINS WITH MINERALS, THERAPEUTIC TABLET PO SCH (08:47)
[2017-02-01] MEDS: FOLIC ACID 1 MG TABLET PO SCH (08:47)
[2017-02-01] MEDS: BACITRACIN 28.4 GM OINTMENT TP SCH ×2 (08:48→16:23)
[2017-02-01] MEDS: LORazepam 2 MG TABLET PO PRN (11:24)
[2017-02-01] MEDS ORDERED: QUET200T PO (14:16)
[2017-02-01] MEDS ORDERED: VIST50 PO (14:16)
[2017-02-01] MEDS ORDERED: PRAZ1 PO (14:16)
[2017-02-01] MEDS ORDERED: ROPI1TAB11 PO (14:16)
[2017-02-01 16:00] VITALS: BP 120/69
[2017-02-01] MEDS: PRAZOSIN HCL 2 MG CAPSULE PO SCH (20:05)
[2017-02-01] MEDS: ZOLPIDEM TARTRATE 10 MG TABLET PO PRN (20:06)
[2017-02-01] MEDS: QUEtiapine FUMARATE 200 MG TABLET PO SCH (20:06)
[2017-02-02] MEDS: HydrOXYzine PAMOATE 50 MG CAPSULE PO SCH (06:16)
[2017-02-02 08:01] LABS: BASOPHILS % (AUTO) 0.3 % (0.0-2.0); EOSINOPHILS % (AUTO) 3.1 % (1.0-6.0); HEMOGLOBIN 12.4 g/dL (12.0-16.0); LYMPHOCYTES # (AUTO) 2.3 K/uL (1.0-4.8); LYMPHOCYTES % (AUTO) 27.4 % (22.0-44.0); MEAN CORPUSCULAR HEMOGLOBIN 27.4 pg (26.0-34.0); MEAN CORPUSCULAR HGB CONC 32.7 G/dL (31.0-37.0); MEAN CORPUSCULAR VOLUME 84 fL (80-100); MONOCYTES # (AUTO) 0.7 K/uL (0.1-1.0); NEUTROPHILS # (AUTO) 5.1 K/uL (1.8-7.7); NEUTROPHILS % (AUTO) 61.2 % (40.0-70.0); PLATELET COUNT (AUTO) 294 K/uL (150-450); RED BLOOD CELL COUNT(AUTO) 4.53 MIL/uL (4.00-5.20); RED CELL DISTRIBUTION WIDTH 13.7 % (11.5-14.5); WHITE BLOOD COUNT (AUTO) 8.4 K/uL (4.5-11.0)
[2017-02-02 08:14] LABS: ALANINE AMINOTRANSFERASE 41 U/L (12-78); ALBUMIN 3.3 g/dL (3.4-5.0); ANION GAP 9 mmol/L (8-16); ASPARTATE AMINOTRANSFERASE 21 U/L (15-37); BILIRUBIN,TOTAL 0.4 mg/dL (0.1-1.0); CARBON DIOXIDE 28 mmol/L (22-29); CHLORIDE 104 mmol/L (98-107); CREATININE 0.68 mg/dL (0.60-1.30); GLOMERULAR FILTR. RATE CALC > 60 mL/min (>60); POTASSIUM 4.5 mmol/L (3.5-5.1); SODIUM SERUM 141 mmol/L (136-145); UREA NITROGEN, BLOOD 8 mg/dL (7-18)
[2017-02-02 08:33] VITALS: BP 106/59
[2017-02-02] MEDS: THIAMINE HCL 100 MG TABLET PO SCH ×2 (09:12→16:04)
[2017-02-02] MEDS: FOLIC ACID 1 MG TABLET PO SCH (09:12)
[2017-02-02] MEDS: BACITRACIN 28.4 GM OINTMENT TP SCH ×2 (09:12→16:03)
[2017-02-02] MEDS: MULTIVITAMINS WITH MINERALS, THERAPEUTIC TABLET PO SCH (09:12)
[2017-02-02] MEDS: LORazepam 2 MG TABLET PO PRN ×2 (09:13→16:03)
[2017-02-02] MEDS ORDERED: ROPI2 PO (13:54)
[2017-02-02] MEDS ORDERED: VIST50 PO (13:54)
[2017-02-02] MEDS ORDERED: QUET200T29 PO (13:54)
[2017-02-02] MEDS ORDERED: PRAZ2 PO (13:54)
[2017-02-02 16:10] VITALS: BP 131/70
[2017-02-02] MEDS: PRAZOSIN HCL 2 MG CAPSULE PO SCH (21:07)
[2017-02-02] MEDS: QUEtiapine FUMARATE 200 MG TABLET PO SCH (21:07)
[2017-02-03 02:49] VITALS: BP 120/71
[2017-02-03] MEDS: HydrOXYzine PAMOATE 50 MG CAPSULE PO SCH (06:43)
[2017-02-03 08:18] VITALS: BP 109/59
[2017-02-03] MEDS: MULTIVITAMINS WITH MINERALS, THERAPEUTIC TABLET PO SCH (08:33)
[2017-02-03] MEDS: FOLIC ACID 1 MG TABLET PO SCH (08:33)
[2017-02-03] MEDS: THIAMINE HCL 100 MG TABLET PO SCH (08:33)
[2017-02-03] MEDS: BACITRACIN 28.4 GM OINTMENT TP SCH (08:33)
== END 2017-02-03 14:05 | disposition home or self-care (01) | DRG 750 ==
LOC: B3A 22:49 → EDSTATUS 22:56
PROVIDERS: ADMIT Psychiatry & Neurology Psychiatry; ATTEND Psychiatry & Neurology Psychiatry
PROC: GZHZZZZ Group Psychotherapy (ICD-10-PCS; principal; 2017-01-23)
PROC: 3E0234Z Introduction of Serum, Toxoid and Vaccine into Muscle, Percutaneous Approach (ICD-10-PCS; 2017-01-23)
PROC: GZ51ZZZ Individual Psychotherapy, Behavioral (ICD-10-PCS; 2017-01-23)
DX: F25.0 Schizoaffective disorder, bipolar type (principal); R45.851 Suicidal ideations; E88.09 Other disorders of plasma-protein metabolism, not elsewhere classified; J45.909 Unspecified asthma, uncomplicated; F43.10 Post-traumatic stress disorder, unspecified; Z91.5 Personal history of self-harm; Z91.14 Patient's other noncompliance with medication regimen; Z79.899 Other long term (current) drug therapy
CPT/HCPCS: 80307; 83036; 84436; 84439; 84443; 87081; 90471

== ENCOUNTER 2017-02-08 12:31 | Inpatient (IN) | payer MEDICAID, OTHER ==
[~2017-02-08] VITALS: Ht 162.6 cm; Wt 95.7 kg
[~2017-02-08 12:31] MED LIST changes: +PRAZ1 PO; +QUET200T PO; +QUET200T29 PO; -QUET25TA PO; -QUET300T2 PO; +ROPI1TAB11 PO; +ROPI2 PO; +VIST50 PO
[2017-02-08 14:23] LABS: BASOPHILS # (AUTO) 0.13 K/uL (0.00-0.20); BASOPHILS % (AUTO) 1.9 % (0.0-2.0); EOSINOPHILS # (AUTO) 0.21 K/uL (0.00-0.70); EOSINOPHILS % (AUTO) 2.98 % (1.0-6.0); HEMATOCRIT 40.6 % (36-46); HEMOGLOBIN 13.2 g/dL (12.0-16.0); LYMPHOCYTES # (AUTO) 1.6 K/uL (1.0-4.8); MEAN CORPUSCULAR HEMOGLOBIN 27.5 pg (26.0-34.0); MEAN CORPUSCULAR HGB CONC 32.6 G/dL (31.0-37.0); MEAN CORPUSCULAR VOLUME 84 fL (80-100); MONOCYTES # (AUTO) 0.4 K/uL (0.1-1.0); MONOCYTES % (AUTO) 6.2 % (2.0-9.0); NEUTROPHILS # (AUTO) 4.8 K/uL (1.8-7.7); PLATELET COUNT (AUTO) 278 K/uL (150-450); RED BLOOD CELL COUNT(AUTO) 4.81 MIL/uL (4.00-5.20); RED CELL DISTRIBUTION WIDTH 13.5 % (11.5-14.5); WHITE BLOOD COUNT (AUTO) 7.2 K/uL (4.5-11.0)
[2017-02-08] MEDS ORDERED: QUEtiapine FUMARATE 200 MG TABLET PO ONE (14:30)
[2017-02-08] MEDS ORDERED: LOPERAMIDE HCL 2 MG CAPSULE PO PRN (15:15)
[2017-02-08] MEDS ORDERED: HydrOXYzine PAMOATE 50 MG CAPSULE PO PRN (15:15)
[2017-02-08] MEDS ORDERED: MAGNESIUM HYDROXIDE SUSPENSION 30 ML UDCUP PO PRN (15:15)
[2017-02-08] MEDS ORDERED: ACETAMINOPHEN 325 MG TABLET PO PRN (15:15)
[2017-02-08] MEDS ORDERED: QUEtiapine FUMARATE 100 MG TABLET PO PRN (15:15)
[2017-02-08] MEDS ORDERED: GuaiFENesin/D-METHORPHAN [SUGAR-FREE] 200-20MG/10 ML SYRUP UDCUP PO PRN (15:15)
[2017-02-08] MEDS ORDERED: MAG HYDROX/AL HYDROX/SIMETH ES 30 ML SUSPENSION UDCUP PO PRN (15:15)
[2017-02-08 16:26] LABS: ANION GAP 7 mmol/L (8-16); CALCIUM, TOTAL 9.2 mg/dL (8.8-10.5); CARBON DIOXIDE 30 mmol/L (22-29); CHLORIDE 105 mmol/L (98-107); CREATININE 0.69 mg/dL (0.60-1.30); GLOMERULAR FILTR. RATE CALC > 60 mL/min (>60); POTASSIUM 4.6 mmol/L (3.5-5.1); SODIUM SERUM 142 mmol/L (136-145); UREA NITROGEN, BLOOD 7 mg/dL (7-18)
[2017-02-08 16:49] LABS: ALANINE AMINOTRANSFERASE 34 U/L (12-78); ALBUMIN 3.8 g/dL (3.4-5.0); ASPARTATE AMINOTRANSFERASE 20 U/L (15-37); BILIRUBIN,TOTAL 0.3 mg/dL (0.1-1.0); TOTAL PROTEIN, SERUM 8.3 g/dL (6.4-8.2)
[2017-02-08 19:22] LABS: APPEARANCE,URINE CLOUDY (CLEAR); GLUCOSE, URINE (UA) NEGATIVE (NEGATIVE); KETONES,URINE NEGATIVE (NEGATIVE); OCCULT BLOOD,URINE TRACE (NEGATIVE); PROTEIN,URINE NEGATIVE (NEGATIVE)
[2017-02-08 19:24] LABS: ADD UA MICROSCOPIC YES; LEUKOCYTE ESTERASE ,URINE SMALL (NEGATIVE)
[2017-02-08 19:25] LABS: SQUAMOUS EPITHELIAL CELL,UR Many /LPF (None Seen)
[2017-02-08] MEDS ORDERED: PRAZOSIN HCL 2 MG CAPSULE PO SCH (21:00)
[2017-02-09] MEDS: ZOLPIDEM TARTRATE 10 MG TABLET PO PRN ×2 (01:43→21:17)
[2017-02-09 02:24] VITALS: BP 114/67
[2017-02-09 06:54] LABS: BASOPHILS % (AUTO) 0.3 % (0.0-2.0); EOSINOPHILS % (AUTO) 4.3 % (1.0-6.0); HEMATOCRIT 39.2 % (36-46); HEMOGLOBIN 12.7 g/dL (12.0-16.0); LYMPHOCYTES # (AUTO) 2.8 K/uL (1.0-4.8); LYMPHOCYTES % (AUTO) 31.9 % (22.0-44.0); MEAN CORPUSCULAR HEMOGLOBIN 27.3 pg (26.0-34.0); MEAN CORPUSCULAR HGB CONC 32.4 G/dL (31.0-37.0); MEAN CORPUSCULAR VOLUME 84 fL (80-100); MONOCYTES # (AUTO) 0.7 K/uL (0.1-1.0); MONOCYTES % (AUTO) 7.4 % (2.0-9.0); NEUTROPHILS # (AUTO) 4.9 K/uL (1.8-7.7); NEUTROPHILS % (AUTO) 56.1 % (40.0-70.0); PLATELET COUNT (AUTO) 259 K/uL (150-450); RED BLOOD CELL COUNT(AUTO) 4.66 MIL/uL (4.00-5.20); RED CELL DISTRIBUTION WIDTH 13.4 % (11.5-14.5); WHITE BLOOD COUNT (AUTO) 8.7 K/uL (4.5-11.0)
[2017-02-09 07:45] LABS: ALANINE AMINOTRANSFERASE 40 U/L (12-78); ALBUMIN 3.2 g/dL (3.4-5.0); ANION GAP 7 mmol/L (8-16); ASPARTATE AMINOTRANSFERASE 24 U/L (15-37); BILIRUBIN,TOTAL 0.1 mg/dL (0.1-1.0); CALCIUM, TOTAL 8.6 mg/dL (8.8-10.5); CARBON DIOXIDE 27 mmol/L (22-29); CHLORIDE 105 mmol/L (98-107); CREATININE 0.61 mg/dL (0.60-1.30); GLOMERULAR FILTR. RATE CALC > 60 mL/min (>60); POTASSIUM 4.1 mmol/L (3.5-5.1); SODIUM SERUM 139 mmol/L (136-145); TOTAL PROTEIN, SERUM 7.6 g/dL (6.4-8.2); UREA NITROGEN, BLOOD 8 mg/dL (7-18)
[2017-02-09] MEDS ORDERED: CloZAPine 25 MG TABLET PO SCH (09:00)
[2017-02-09 10:30] VITALS: BP 103/64
[2017-02-09] MEDS: MULTIVITAMINS WITH MINERALS, THERAPEUTIC TABLET PO SCH (10:37)
[2017-02-09] MEDS: LITHIUM CARBONATE 300 MG CAPSULE PO SCH ×3 (10:37→16:05)
[2017-02-09] MEDS: THIAMINE HCL 100 MG TABLET PO SCH ×2 (10:37→16:05)
[2017-02-09] MEDS: FOLIC ACID 1 MG TABLET PO SCH (10:37)
[2017-02-09 16:27] VITALS: BP 105/60
[2017-02-09 20:01] VITALS: BP 128/70
[2017-02-09] MEDS: PRAZOSIN HCL 2 MG CAPSULE PO SCH (20:04)
[2017-02-09] MEDS ORDERED: ACETAMINOPHEN 325 MG TABLET PO PRN (21:15)
[2017-02-09] MEDS ORDERED: IBUPROFEN 400 MG TABLET PO PRN (21:15)
[2017-02-09] MEDS ORDERED: ALBUTEROL SULFATE HFA 90 MCG/PUFF 8 GM INHALER IH PRN (21:15)
[2017-02-09] MEDS: LORazepam 2 MG TABLET PO PRN (23:44)
[2017-02-10 00:17] VITALS: BP 122/72
[2017-02-10 07:43] LABS: CHOL/HDL RATIO 3.8 (3.9-5.7); THYROID STIMULATING HORMONE 0.97 uIU/mL (0.36-3.74)
[2017-02-10 07:45] VITALS: BP 109/71
[2017-02-10] MEDS: LITHIUM CARBONATE 300 MG CAPSULE PO SCH ×3 (08:27→16:01)
[2017-02-10] MEDS: THIAMINE HCL 100 MG TABLET PO SCH ×2 (08:27→16:01)
[2017-02-10] MEDS: CIPROFLOXACIN HCL 250 MG TABLET PO SCH ×2 (08:28→16:01)
[2017-02-10] MEDS: MULTIVITAMINS WITH MINERALS, THERAPEUTIC TABLET PO SCH (08:28)
[2017-02-10] MEDS: FOLIC ACID 1 MG TABLET PO SCH (08:28)
[2017-02-10] MEDS ORDERED: CloZAPine 25 MG TABLET PO SCH ×2 (09:00→21:00)
[2017-02-10 16:22] VITALS: BP 137/75
[2017-02-10 17:10] VITALS: BP 132/74
[2017-02-10] MEDS: LORazepam 2 MG TABLET PO PRN (21:02)
[2017-02-10] MEDS: PRAZOSIN HCL 2 MG CAPSULE PO SCH (21:26)
[2017-02-10] MEDS: ZOLPIDEM TARTRATE 10 MG TABLET PO PRN (21:26)
[2017-02-10] MEDS: ROPINIRole HCL 1 MG TABLET PO SCH (21:26)
[2017-02-11 06:34] VITALS: BP 110/68
[2017-02-11 08:53] VITALS: BP 101/58
[2017-02-11] MEDS ORDERED: CloZAPine 25 MG TABLET PO SCH ×2 (09:00→21:00)
[2017-02-11] MEDS: LITHIUM CARBONATE 300 MG CAPSULE PO SCH ×3 (09:01→16:04)
[2017-02-11] MEDS: THIAMINE HCL 100 MG TABLET PO SCH ×2 (09:01→16:04)
[2017-02-11] MEDS: MULTIVITAMINS WITH MINERALS, THERAPEUTIC TABLET PO SCH (09:01)
[2017-02-11] MEDS: CIPROFLOXACIN HCL 250 MG TABLET PO SCH ×2 (09:02→16:04)
[2017-02-11] MEDS: FOLIC ACID 1 MG TABLET PO SCH (09:09)
[2017-02-11 16:03] VITALS: BP 106/70
[2017-02-11] MEDS: LORazepam 2 MG TABLET PO PRN (16:04)
[2017-02-11] MEDS: ROPINIRole HCL 1 MG TABLET PO SCH (20:26)
[2017-02-11] MEDS: ZOLPIDEM TARTRATE 10 MG TABLET PO PRN (20:27)
[2017-02-11] MEDS: PRAZOSIN HCL 2 MG CAPSULE PO SCH (20:27)
[2017-02-12 06:28] VITALS: BP 115/72
[2017-02-12 08:27] VITALS: BP 100/55
[2017-02-12] MEDS: FOLIC ACID 1 MG TABLET PO SCH (09:34)
[2017-02-12] MEDS: CIPROFLOXACIN HCL 250 MG TABLET PO SCH ×2 (09:34→16:01)
[2017-02-12] MEDS: THIAMINE HCL 100 MG TABLET PO SCH ×2 (09:34→16:00)
[2017-02-12] MEDS: CloZAPine 25 MG TABLET PO SCH ×2 (09:34→20:14)
[2017-02-12] MEDS: MULTIVITAMINS WITH MINERALS, THERAPEUTIC TABLET PO SCH (09:34)
[2017-02-12] MEDS: LITHIUM CARBONATE 300 MG CAPSULE PO SCH ×4 (09:35→20:15)
[2017-02-12 15:52] VITALS: BP 136/86
[2017-02-12 16:00] VITALS: BP 136/86
[2017-02-12 20:00] VITALS: BP 130/72
[2017-02-12] MEDS: PRAZOSIN HCL 2 MG CAPSULE PO SCH (20:14)
[2017-02-12] MEDS: ROPINIRole HCL 1 MG TABLET PO SCH (20:14)
[2017-02-12] MEDS: ZOLPIDEM TARTRATE 10 MG TABLET PO PRN (20:59)
[2017-02-13 06:03] VITALS: BP 122/62
[2017-02-13 08:01] VITALS: BP 122/66
[2017-02-13] MEDS: CloZAPine 25 MG TABLET PO SCH ×2 (09:46→20:04)
[2017-02-13] MEDS: MULTIVITAMINS WITH MINERALS, THERAPEUTIC TABLET PO SCH (09:47)
[2017-02-13] MEDS: THIAMINE HCL 100 MG TABLET PO SCH ×2 (09:47→16:03)
[2017-02-13] MEDS: CIPROFLOXACIN HCL 250 MG TABLET PO SCH ×2 (09:47→16:03)
[2017-02-13] MEDS: LITHIUM CARBONATE 300 MG CAPSULE PO SCH ×4 (09:47→20:04)
[2017-02-13] MEDS: FOLIC ACID 1 MG TABLET PO SCH (09:47)
[2017-02-13 12:46] VITALS: BP 117/73
[2017-02-13 16:05] VITALS: BP 128/77
[2017-02-13] MEDS: ROPINIRole HCL 1 MG TABLET PO SCH (20:04)
[2017-02-13] MEDS: PRAZOSIN HCL 2 MG CAPSULE PO SCH (20:04)
[2017-02-14 07:21] VITALS: BP 125/78
[2017-02-14] MEDS: FOLIC ACID 1 MG TABLET PO SCH (08:09)
[2017-02-14] MEDS: CIPROFLOXACIN HCL 250 MG TABLET PO SCH ×2 (08:09→16:07)
[2017-02-14] MEDS: MULTIVITAMINS WITH MINERALS, THERAPEUTIC TABLET PO SCH (08:09)
[2017-02-14] MEDS: LITHIUM CARBONATE 300 MG CAPSULE PO SCH ×4 (08:09→20:03)
[2017-02-14] MEDS: THIAMINE HCL 100 MG TABLET PO SCH ×2 (08:09→16:07)
[2017-02-14 08:25] VITALS: BP 117/60
[2017-02-14] MEDS ORDERED: CloZAPine 25 MG TABLET PO SCH (09:00)
[2017-02-14 16:00] VITALS: BP 117/89
[2017-02-14 19:32] VITALS: BP 93/53
[2017-02-14] MEDS: ROPINIRole HCL 1 MG TABLET PO SCH (20:03)
[2017-02-14] MEDS: PRAZOSIN HCL 2 MG CAPSULE PO SCH (20:03)
[2017-02-14 20:05] VITALS: BP 120/67
[2017-02-14] MEDS ORDERED: CloZAPine 100 MG TABLET PO SCH (21:00)
[2017-02-15 07:06] VITALS: BP 110/68
[2017-02-15] MEDS: LITHIUM CARBONATE 300 MG CAPSULE PO SCH ×3 (08:00→16:21)
[2017-02-15] MEDS: FOLIC ACID 1 MG TABLET PO SCH (08:00)
[2017-02-15] MEDS: CIPROFLOXACIN HCL 250 MG TABLET PO SCH ×2 (08:00→16:21)
[2017-02-15] MEDS: MULTIVITAMINS WITH MINERALS, THERAPEUTIC TABLET PO SCH (08:00)
[2017-02-15] MEDS: THIAMINE HCL 100 MG TABLET PO SCH ×2 (08:00→16:21)
[2017-02-15 08:45] VITALS: BP 100/58
[2017-02-15] MEDS ORDERED: CloZAPine 25 MG TABLET PO SCH (09:00)
[2017-02-15 15:09] LABS: CLOZAPINE 102 ng/mL (350-650); CLOZAPINE & NORCLOZAPINE 145 ng/mL; NORCLOZAPINE 43 ng/mL (Not Estab.)
[2017-02-15] MEDS ORDERED: CLOZ100 PO (15:19)
[2017-02-15] MEDS ORDERED: LITH300C3 PO (15:19)
[2017-02-15] MEDS ORDERED: PRAZ2 PO (15:19)
[2017-02-15] MEDS ORDERED: CIP250 PO (15:57)
[2017-02-15] MEDS ORDERED: CloZAPine 100 MG TABLET PO SCH (21:00)
[2017-02-16] MEDS ORDERED: CloZAPine 25 MG TABLET PO SCH (09:00)
[2017-02-16] MEDS ORDERED: CloZAPine 100 MG TABLET PO SCH (21:00)
[2017-02-17] MEDS ORDERED: CloZAPine 100 MG TABLET PO SCH (09:00)
[2017-02-19] MEDS ORDERED: CloZAPine 25 MG TABLET PO SCH (09:00)
[2017-02-19] MEDS ORDERED: CloZAPine 100 MG TABLET PO SCH (21:00)
[2017-02-20] MEDS ORDERED: CloZAPine 25 MG TABLET PO SCH (09:00)
[2017-02-20] MEDS ORDERED: CloZAPine 100 MG TABLET PO SCH (21:00)
[2017-02-21] MEDS ORDERED: CloZAPine 100 MG TABLET PO SCH ×2 (09:00→21:00)
== END 2017-02-15 18:10 | disposition home or self-care (01) | DRG 750 ==
LOC: EEVIPCON 12:33 → EMS 12:33 → 3EI 23:06 → B3A 02-10 17:15
PROVIDERS: ADMIT Psychiatry & Neurology Psychiatry; ATTEND Psychiatry & Neurology Psychiatry
PROC: GZ51ZZZ Individual Psychotherapy, Behavioral (ICD-10-PCS; principal; 2017-02-08)
DX: F25.0 Schizoaffective disorder, bipolar type (principal); R45.851 Suicidal ideations; N39.0 Urinary tract infection, site not specified; E66.9 Obesity, unspecified; J45.909 Unspecified asthma, uncomplicated; F41.9 Anxiety disorder, unspecified; I10 Essential (primary) hypertension; R63.0 Anorexia; G25.81 Restless legs syndrome; F43.10 Post-traumatic stress disorder, unspecified; Z91.19 Patient's noncompliance with other medical treatment and regimen; Z79.899 Other long term (current) drug therapy; Z68.31 Body mass index [BMI] 31.0-31.9, adult; Z91.5 Personal history of self-harm
CPT/HCPCS: 80159; 83036; 84443; 87081; 87086; 99285; G0480

== ENCOUNTER 2017-03-13 07:43 | Emergency (ER) | payer MEDICAID, OTHER ==
[~2017-03-13] VITALS: Ht 167.6 cm; Wt 81.8 kg
[~2017-03-13 07:43] MED LIST changes: +CIP250 PO; +CLOZ100 PO; +LITH300C3 PO; -PRAZ1 PO; -QUET200T PO; -QUET200T29 PO; -ROPI1TAB11 PO; -ROPI2 PO; -VIST50 PO
[2017-03-13] MEDS ORDERED: ZOLP10 PO (07:53)
[2017-03-13] MEDS ORDERED: VITAD1000 PO (07:53)
[2017-03-13] MEDS ORDERED: [UNRECOGNIZED DRUG - CODE] PO (07:53)
[2017-03-13 08:46] LABS: BASOPHILS % (AUTO) 0.4 % (0.0-2.0); EOSINOPHILS % (AUTO) 4.8 % (1.0-6.0); HEMATOCRIT 38.3 % (36-46); HEMOGLOBIN 12.3 g/dL (12.0-16.0); LYMPHOCYTES # (AUTO) 1.9 K/uL (1.0-4.8); LYMPHOCYTES % (AUTO) 16.9 % (22.0-44.0); MEAN CORPUSCULAR HEMOGLOBIN 26.8 pg (26.0-34.0); MEAN CORPUSCULAR VOLUME 84 fL (80-100); MONOCYTES # (AUTO) 0.8 K/uL (0.1-1.0); MONOCYTES % (AUTO) 6.9 % (2.0-9.0); NEUTROPHILS # (AUTO) 8.2 K/uL (1.8-7.7); PLATELET COUNT (AUTO) 299 K/uL (150-450); RED BLOOD CELL COUNT(AUTO) 4.57 MIL/uL (4.00-5.20); RED CELL DISTRIBUTION WIDTH 13.2 % (11.5-14.5); WHITE BLOOD COUNT (AUTO) 11.5 K/uL (4.5-11.0)
[2017-03-13 09:03] LABS: ANION GAP 6 mmol/L (8-16); CARBON DIOXIDE 27 mmol/L (22-29); CHLORIDE 103 mmol/L (98-107); CREATININE 0.65 mg/dL (0.60-1.30); GLOMERULAR FILTR. RATE CALC > 60 mL/min (>60); POTASSIUM 4.1 mmol/L (3.5-5.1); SODIUM SERUM 136 mmol/L (136-145); UREA NITROGEN, BLOOD 7 mg/dL (7-18)
[2017-03-13 09:09] LABS: ALANINE AMINOTRANSFERASE 52 U/L (12-78); ALBUMIN 3.8 g/dL (3.4-5.0); ASPARTATE AMINOTRANSFERASE 25 U/L (15-37); BILIRUBIN,TOTAL 0.3 mg/dL (0.1-1.0); TOTAL PROTEIN, SERUM 8.5 g/dL (6.4-8.2)
[2017-03-13] MEDS ORDERED: HALOPERIDOL LACTATE 5 MG/ML VIAL IM ONE (09:15)
[2017-03-13] MEDS ORDERED: DiphenhydrAMINE HCL 50 MG/ML VIAL IM ONE (09:15)
[2017-03-13 09:24] LABS: LITHIUM 0.29 mmol/L (0.60-1.20)
[2017-03-13 11:00] VITALS: BP 164/53
== END 2017-03-13 11:27 | disposition home or self-care (01) ==
LOC: EMS 07:49
DX: F25.9 Schizoaffective disorder, unspecified (principal); F32.9 Major depressive disorder, single episode, unspecified; J45.909 Unspecified asthma, uncomplicated
CPT/HCPCS: 36415; 80053; 80178; 85025; 96372; 99284; G0480; J1200; J1630

== ENCOUNTER 2017-03-15 22:18 | Inpatient (IN) | payer MEDICAID, OTHER ==
[~2017-03-15] VITALS: Ht 162.6 cm; Wt 97.5 kg
[~2017-03-15 22:18] MED LIST changes: -CIP250 PO; +VITAD1000 PO; +ZOLP10 PO; +[UNRECOGNIZED DRUG - CODE] PO
[2017-03-15 23:04] LABS: BASOPHILS % (AUTO) 0.5 % (0.0-2.0); EOSINOPHILS % (AUTO) 3.1 % (1.0-6.0); HEMATOCRIT 40.5 % (36-46); HEMOGLOBIN 12.9 g/dL (12.0-16.0); LYMPHOCYTES # (AUTO) 2.2 K/uL (1.0-4.8); LYMPHOCYTES % (AUTO) 17.1 % (22.0-44.0); MEAN CORPUSCULAR HEMOGLOBIN 26.8 pg (26.0-34.0); MEAN CORPUSCULAR HGB CONC 31.8 G/dL (31.0-37.0); MEAN CORPUSCULAR VOLUME 84 fL (80-100); MONOCYTES # (AUTO) 0.7 K/uL (0.1-1.0); MONOCYTES % (AUTO) 5.1 % (2.0-9.0); NEUTROPHILS # (AUTO) 9.5 K/uL (1.8-7.7); NEUTROPHILS % (AUTO) 74.2 % (40.0-70.0); PLATELET COUNT (AUTO) 310 K/uL (150-450); RED CELL DISTRIBUTION WIDTH 13.7 % (11.5-14.5); WHITE BLOOD COUNT (AUTO) 12.9 K/uL (4.5-11.0)
[2017-03-15 23:15] LABS: ANION GAP 9 mmol/L (8-16); CALCIUM, TOTAL 9.5 mg/dL (8.8-10.5); CARBON DIOXIDE 27 mmol/L (22-29); CHLORIDE 101 mmol/L (98-107); CREATININE 0.73 mg/dL (0.60-1.30); GLOMERULAR FILTR. RATE CALC > 60 mL/min (>60); POTASSIUM 3.9 mmol/L (3.5-5.1); SODIUM SERUM 137 mmol/L (136-145); UREA NITROGEN, BLOOD 7 mg/dL (7-18)
[2017-03-15 23:22] LABS: ALANINE AMINOTRANSFERASE 56 U/L (12-78); ALBUMIN 3.9 g/dL (3.4-5.0); ASPARTATE AMINOTRANSFERASE 27 U/L (15-37); BILIRUBIN,TOTAL 0.2 mg/dL (0.1-1.0); TOTAL PROTEIN, SERUM 8.7 g/dL (6.4-8.2)
[2017-03-15 23:47] LABS: LITHIUM 0.31 mmol/L (0.60-1.20)
[2017-03-16] MEDS ORDERED: LORazepam 2 MG/ML VIAL IM ONE (01:15)
[2017-03-16] MEDS ORDERED: DiphenhydrAMINE HCL 50 MG/ML VIAL IM ONE (01:15)
[2017-03-16] MEDS ORDERED: HALOPERIDOL LACTATE 5 MG/ML VIAL IM ONE (01:15)
[2017-03-16] MEDS ORDERED: HALOPERIDOL 5 MG TABLET PO PRN (03:00)
[2017-03-16] MEDS ORDERED: ZOLPIDEM TARTRATE 10 MG TABLET PO PRN (03:00)
[2017-03-16 07:21] LABS: CHOL/HDL RATIO 3.3 (3.9-5.7)
[2017-03-16] MEDS: LORazepam 2 MG TABLET PO PRN ×2 (07:35→16:11)
[2017-03-16 13:05] VITALS: BP 102/60
[2017-03-16 15:18] LABS: APPEARANCE,URINE CLOUDY (CLEAR); GLUCOSE, URINE (UA) NEGATIVE (NEGATIVE); KETONES,URINE NEGATIVE (NEGATIVE); LEUKOCYTE ESTERASE ,URINE SMALL (NEGATIVE); OCCULT BLOOD,URINE LARGE (NEGATIVE); PROTEIN,URINE POS 1+ (NEGATIVE)
[2017-03-16 15:20] LABS: ADD UA MICROSCOPIC YES
[2017-03-16 15:30] LABS: RBC,URINE 51-100 /HPF (0-2); SQUAMOUS EPITHELIAL CELL,UR Few /LPF (None Seen); WBC,URINE 26-50 /HPF (0-5)
[2017-03-16 16:37] VITALS: BP 116/58
[2017-03-16] MEDS ORDERED: ACETAMINOPHEN 325 MG TABLET PO PRN (16:45)
[2017-03-16] MEDS ORDERED: MAG HYDROX/AL HYDROX/SIMETH ES 30 ML SUSPENSION UDCUP PO PRN (16:45)
[2017-03-16] MEDS ORDERED: LOPERAMIDE HCL 2 MG CAPSULE PO PRN (16:45)
[2017-03-16] MEDS ORDERED: GuaiFENesin/D-METHORPHAN [SUGAR-FREE] 200-20MG/10 ML SYRUP UDCUP PO PRN (16:45)
[2017-03-16] MEDS ORDERED: PROMETHAZINE HCL 25 MG TABLET PO PRN (16:45)
[2017-03-16] MEDS ORDERED: MAGNESIUM HYDROXIDE SUSPENSION 30 ML UDCUP PO PRN (16:45)
[2017-03-16] MEDS ORDERED: HydrOXYzine PAMOATE 50 MG CAPSULE PO PRN (16:45)
[2017-03-16] MEDS: THIAMINE HCL 100 MG TABLET PO SCH (17:27)
[2017-03-16] MEDS: LITHIUM CARBONATE 300 MG CAPSULE PO SCH ×2 (17:28→20:10)
[2017-03-16] MEDS: MetFORMIN HCL 500 MG TABLET PO SCH (17:34)
[2017-03-16] MEDS: CloZAPine 100 MG TABLET PO SCH (20:10)
[2017-03-16 20:52] LABS: GLUCOSE,POINT OF CARE 91 MG/DL (70-110)
[2017-03-16] MEDS: PRAZOSIN HCL 2 MG CAPSULE PO SCH (21:00)
[2017-03-16] MEDS: ZOLPIDEM TARTRATE 10 MG TABLET PO SCH (21:00)
[2017-03-17 03:30] VITALS: BP 118/65
[2017-03-17] MEDS: MetFORMIN HCL 500 MG TABLET PO SCH ×2 (07:12→17:30)
[2017-03-17 08:10] VITALS: BP 109/58
[2017-03-17] MEDS: LITHIUM CARBONATE 300 MG CAPSULE PO SCH ×4 (09:29→20:47)
[2017-03-17] MEDS: MULTIVITAMINS WITH MINERALS, THERAPEUTIC TABLET PO SCH (09:29)
[2017-03-17] MEDS: FOLIC ACID 1 MG TABLET PO SCH (09:30)
[2017-03-17] MEDS: THIAMINE HCL 100 MG TABLET PO SCH ×2 (09:30→16:37)
[2017-03-17] MEDS: SULFAMETHOX/TRIMETH DS 800-160 MG/TABLET PO SCH (16:37)
[2017-03-17 16:53] VITALS: BP 111/62
[2017-03-17] MEDS: CloZAPine 100 MG TABLET PO SCH (20:47)
[2017-03-17] MEDS: PRAZOSIN HCL 2 MG CAPSULE PO SCH (20:49)
[2017-03-17] MEDS: ZOLPIDEM TARTRATE 10 MG TABLET PO SCH (20:49)
[2017-03-17 22:58] VITALS: BP 132/75
[2017-03-18] MEDS: MetFORMIN HCL 500 MG TABLET PO SCH ×2 (06:58→16:41)
[2017-03-18 07:26] VITALS: BP 128/72
[2017-03-18 08:02] VITALS: BP 106/70
[2017-03-18] MEDS: FOLIC ACID 1 MG TABLET PO SCH (08:21)
[2017-03-18] MEDS: THIAMINE HCL 100 MG TABLET PO SCH ×2 (08:21→16:42)
[2017-03-18] MEDS: LITHIUM CARBONATE 300 MG CAPSULE PO SCH ×4 (08:21→20:09)
[2017-03-18] MEDS: MULTIVITAMINS WITH MINERALS, THERAPEUTIC TABLET PO SCH (08:21)
[2017-03-18] MEDS: SULFAMETHOX/TRIMETH DS 800-160 MG/TABLET PO SCH ×2 (08:21→16:41)
[2017-03-18 16:45] VITALS: BP 112/77
[2017-03-18] MEDS: ZOLPIDEM TARTRATE 10 MG TABLET PO SCH (20:09)
[2017-03-18] MEDS: CloZAPine 100 MG TABLET PO SCH (20:09)
[2017-03-18] MEDS: PRAZOSIN HCL 2 MG CAPSULE PO SCH (20:10)
[2017-03-19] MEDS: MetFORMIN HCL 500 MG TABLET PO SCH ×2 (07:05→17:01)
[2017-03-19 07:19] VITALS: BP 121/73
[2017-03-19] MEDS ORDERED: CLOZ100 PO ×2 (08:44→09:21)
[2017-03-19] MEDS ORDERED: METF500T4 PO (08:44)
[2017-03-19] MEDS ORDERED: BACTDSB PO (08:46)
[2017-03-19] MEDS: LITHIUM CARBONATE 300 MG CAPSULE PO SCH ×3 (08:50→17:01)
[2017-03-19] MEDS: SULFAMETHOX/TRIMETH DS 800-160 MG/TABLET PO SCH ×2 (08:50→17:01)
[2017-03-19] MEDS: FOLIC ACID 1 MG TABLET PO SCH (08:50)
[2017-03-19] MEDS: THIAMINE HCL 100 MG TABLET PO SCH ×2 (08:50→17:01)
[2017-03-19] MEDS: MULTIVITAMINS WITH MINERALS, THERAPEUTIC TABLET PO SCH (08:51)
[2017-03-19 09:00] VITALS: BP 99/50
[2017-03-19] MEDS ORDERED: PRAZ2 PO (09:21)
[2017-03-19] MEDS ORDERED: LITH300C3 PO (09:21)
[2017-03-19] MEDS ORDERED: ZOLP10 PO (11:01)
[2017-03-19] MEDS: LORazepam 2 MG TABLET PO PRN (11:43)
[2017-03-19 12:10] LABS: CLOZAPINE 181 ng/mL (350-650); NORCLOZAPINE None Detected (Not Estab.)
== END 2017-03-19 17:35 | disposition home or self-care (01) | DRG 750 ==
LOC: EMS 22:19 → 3EI 03-16 05:45 → B3A 03-17 22:00
PROVIDERS: ADMIT Psychiatry & Neurology Psychiatry; ATTEND Psychiatry & Neurology Psychiatry
DX: F25.9 Schizoaffective disorder, unspecified (principal); G93.41 Metabolic encephalopathy; F43.10 Post-traumatic stress disorder, unspecified; J45.909 Unspecified asthma, uncomplicated; E66.9 Obesity, unspecified; Z91.14 Patient's other noncompliance with medication regimen; D72.829 Elevated white blood cell count, unspecified; Z68.36 Body mass index [BMI] 36.0-36.9, adult
CPT/HCPCS: 80159; 82962; 87081; 87086; 93005; 96372; 99285; G0480; J1200; J2060